=== PATIENT | male | born 1955 | race African-American/Black ===

== ENCOUNTER 2024-02-17 15:37 | Inpatient (IN) | payer OTHER ==
[2024-02-17 16:56] VITALS: BMI 25.8
[2024-02-17] MEDS ORDERED: IBUPROFEN 600 MG TABLET (FP) PO PRN (18:52)
[2024-02-17] MEDS ORDERED: guaiFENesin 600 MG TABLET.ER (FP) PO PRN (18:52)
[2024-02-17] MEDS ORDERED: NALOXONE (NARCAN) HCL 4 MG/0.1 ML SPRAY NS PRN (18:52)
[2024-02-17] MEDS ORDERED: LOPERAMIDE HCL 2 MG CAPSULE PO PRN (18:52)
[2024-02-17] MEDS ORDERED: BENZOCAINE/MENTHOL (CHLORASEPTIC ) LOZENGE MM PRN (18:52)
[2024-02-17] MEDS ORDERED: MAGNESIUM HYDROX 2400MG/30ML ORAL SUSPENSION 30 ML CUP PO PRN (18:52)
[2024-02-17] MEDS ORDERED: IBUPROFEN 400 MG TABLET (FP) PO PRN (18:52)
[2024-02-17] MEDS ORDERED: NALOXONE HCL 0.4 MG/ML VIAL IM PRN (18:52)
[2024-02-17] MEDS ORDERED: POLYETHYLENE GLYCOL (HEALTHYLAX) 3350 17 GM PACKET PO PRN (18:52)
[2024-02-17] MEDS ORDERED: MAG HYDROX/AL HYDROX/SIMETH 30 ML UNIT-DOSE CUP PO PRN (18:52)
[2024-02-17] MEDS ORDERED: BENZONATATE 200 MG CAPSULE PO PRN (18:52)
[2024-02-17] MEDS: metFORMIN HCL 500 MG TABLET (FP) PO SCH (22:02)
[2024-02-17] MEDS: MELATONIN 5 MG TABLETS PO SCH (22:03)
[2024-02-17] MEDS: THIAMINE 100 MG TABLET PO SCH (22:03)
[2024-02-17] MEDS: ATORVASTATIN CA 40 MG TABLET (FP) PO SCH (22:03)
[2024-02-18 09:29] LABS: HEMATOCRIT 36.4 % (35.4-49); MCH 30.4 pg (25.7-33.7); MCHC 32.9 g/dl (32.0-35.9); MEAN CELL VOLUME 92.7 fl (80-96); MEAN PLT VOLUME 8.7 fl (7.5-11.1); PLATELET COUNT 216 10^3/uL (134-434); RBC 3.93 M/mm3 (4.00-5.60); RDW 14.4 % (11.9-15.9); WHITE BLOOD COUNT 4.8 K/mm3 (4.0-10.0)
[2024-02-18 09:30] LABS: CHLORIDE 106 mmol/L (98-107); POTASSIUM 4.6 mmol/L (3.5-5.1); SODIUM 137 mmol/L (136-145)
[2024-02-18 09:32] LABS: CALCIUM 8.9 mg/dL (8.5-10.1)
[2024-02-18 09:33] LABS: ANION GAP 9 mmol/L (4-13); BLOOD UREA NITROGEN 29.5 mg/dL (7-18); CO2 22 mmol/L (21-32); GLUCOSE,RANDOM 104 mg/dL (74-106)
[2024-02-18 09:36] LABS: CREATININE 1.2 mg/dL (0.55-1.3); SGOT/AST 21 U/L (15-37); SGPT/ALT 23 U/L (13-61)
[2024-02-18 09:37] LABS: BILIRUBIN,TOTAL 0.3 mg/dL (0.2-1); TOT PROT 7.3 g/dl (6.4-8.2)
[2024-02-18 09:38] LABS: ALBUMIN 3.6 g/dl (3.4-5.0)
[2024-02-18 09:39] LABS: ALK PHOS 75 U/L (45-117)
[2024-02-18] MEDS ORDERED: FOLIC ACID PO SCH (10:00)
[2024-02-18] MEDS ORDERED: [UNRECOGNIZED DRUG - OTHER] PO SCH (10:00)
[2024-02-18] MEDS ORDERED: THIAMINE PO SCH (10:00)
[2024-02-18] MEDS ORDERED: MULTIVITAMIN PO SCH (10:00)
[2024-02-18] MEDS ORDERED: IRON PO SCH (10:00)
[2024-02-18] MEDS: ASPIRIN 81 MG CHEWABLE TABLETS PO SCH (10:10)
[2024-02-18] MEDS: PRENATAL VITAMINS W/ FOLIC ACID TABLET (FP) PO SCH (10:10)
[2024-02-18] MEDS: amLODIPine BESYLATE 10 MG TABLET (FP) PO SCH (10:10)
[2024-02-18] MEDS: BICTEGRAV/EMTRICIT/TENOFOV (BIKTARVY) 50-200-25 MG TABLET PO SCH (10:10)
[2024-02-18] MEDS ORDERED: DULoxetine HCL 60 MG CAPSULE.DR PO SCH (10:45)
[2024-02-18] MEDS: RITONAVIR PO SCH (11:05)
[2024-02-18] MEDS: NIRMATRELVIR PO SCH (11:05)
[2024-02-18] MEDS: [UNRECOGNIZED DRUG - OTHER] PO SCH (11:05)
[2024-02-18] MEDS: PNEUMOC 20-VAL CONJ-DIP CRM/PF 0.5 ML SYRINGE IM ONE (11:10)
[2024-02-18] MEDS: DULoxetine HCL 60 MG CAPSULE.DR PO SCH (12:09)
[2024-02-18 14:31] LABS: EPI CELLS 3 /uL (0-25.1); HYALINE CASTS 0 /uL (0-3.1); PH,URINE 6.5 (5.0-8.0); URINE APPEARANCE CLEAR; URINE BACTERIA 8 /uL (0-1359); URINE BILIRUBIN NEGATIVE (NEGATIVE); URINE COLOR YELLOW; URINE GLUCOSE (UA) NEGATIVE (NEGATIVE); URINE KETONE NEGATIVE (NEGATIVE); URINE LEUK ESTERASE NEGATIVE (NEGATIVE); URINE NITRITE NEGATIVE (NEGATIVE); URINE PROTEIN 2+ (NEGATIVE); URINE RBC 8 /uL (0-23.9); URINE UROBILINOGEN 0.2 mg/dL (0.2-1.0); URINE WBC 5 /uL (0-25.8)
[2024-02-24] MEDS: HYDROCHLOROTHIAZIDE 12.5 MG CAPSULE (FP) PO SCH (13:26)
[2024-02-26] MEDS: ACETAMINOPHEN 325 MG TABLET (FP) PO PRN (06:01)
[2024-03-01 06:32] VITALS: TEMP 97.5
[2024-03-01 08:59] VITALS: BP 153/81; PULSE 81; RESP 18
== END 2024-03-01 09:41 | disposition home or self-care (01) | DRG 895 ==
LOC: YASAS 15:37 → Y3W 19:19
PROVIDERS: ADMIT Allergy & Immunology; ATTEND Psychiatry & Neurology Pain Medicine
PROC: HZ42ZZZ Group Counseling for Substance Abuse Treatment, Cognitive-Behavioral (ICD-10-PCS; principal; 2024-02-17)
DX: F10.20 Alcohol dependence, uncomplicated (principal); F33.9 Major depressive disorder, recurrent, unspecified; F17.210 Nicotine dependence, cigarettes, uncomplicated; F25.9 Schizoaffective disorder, unspecified; I10 Essential (primary) hypertension; E78.5 Hyperlipidemia, unspecified; E11.9 Type 2 diabetes mellitus without complications; B18.2 Chronic viral hepatitis C; N40.0 Benign prostatic hyperplasia without lower urinary tract symptoms; R26.89 Other abnormalities of gait and mobility; Z99.89 Dependence on other enabling machines and devices; Z87.891 Personal history of nicotine dependence; Z86.11 Personal history of tuberculosis; Z86.73 Personal history of transient ischemic attack (TIA), and cerebral infarction without residual deficits
CPT/HCPCS: 36415; 71046-TC-FY; 80053; 80305; 80307; 81003; 82962; 85027; 86780; 87811; 90677; 93005; 93010; G0009